=== PATIENT | male | born 1980 | race Caucasian/White ===

== ENCOUNTER → 2025-11-09 12:03 | Outpatient (CLI) | payer OTHER, SELFPAY ==
--- NOTE | 2025-11-09 12:05 | DI.RAD.S_ITS ---
PROCEDURE: XR FOOT LT MIN 3V INDICATIONS: Kicked object. Pain 3rd 4th 5th toe and metatarsal TECHNIQUE: 3 views of the foot were acquired. COMPARISON: None. FINDINGS: Bones: Nondisplaced oblique fracture of the 4th proximal phalangeal shaft. No suspicious bony lesions. Mild hallux valgus. Mild forefoot osteoarthrosis. Small posterior and plantar calcaneal enthesophytes. Chronic ossification adjacent to the medial malleolar tip. Soft tissues: Soft tissue edema is seen in the forefoot and 4th toe. IMPRESSION: Nondisplaced oblique fracture of the 4th proximal phalangeal shaft. Approved by: Yogi Vila M.D. on 11/09/2025 at 12:57
== END ==
PROVIDERS: PCP Family Medicine; Referring Provider Nurse Practitioner Family; Visit Provider Nurse Practitioner Family
DX: S92.515A Nondisplaced fracture of proximal phalanx of left lesser toe(s), initial encounter for closed fracture (principal); M19.071 Primary osteoarthritis, right ankle and foot; S99.929A Unspecified injury of unspecified foot, initial encounter; W22.8XXA Striking against or struck by other objects, initial encounter
CPT/HCPCS: 73630